=== PATIENT | male | born 1965 | race Asian ===

== ENCOUNTER 2018-09-14 04:00 | Emergency (ER) | payer OTHER ==
[2018-09-14] MEDS ORDERED: Morphine 4 MG/ML VIAL ONE (04:18)
[2018-09-14] MEDS ORDERED: Ondansetron PF 4 MG/2 ML Vial ONE (04:18)
[2018-09-14 04:27] LABS: #Lymphocytes 0.9 thou/uL (1.20-3.40); #Monocytes 0.6 thou/uL (0.11-0.59); #Neutrophils 11.7 thou/uL (1.40-6.50); %Eosinophils 0.2 % (0.0-10.0); %Lymphocytes 6.9 % (21.0-51.0); %Monocytes 4.6 % (0.0-10.0); %Neutrophils 88.3 % (42.0-75.0); Hemoglobin 15.2 g/dL (14.0-18.0); Mean Corpuscular HGB CONC 34.3 g/dL (32.0-36.0); Mean Corpuscular Hemoglobin 32.1 pg (27.0-31.0); Mean Corpuscular Volume 93.5 fL (78.0-98.0); Mean Platelet Volume 6.9 fL (7.4-10.4); Platelet Count 216 thou/uL (130-400); Red Blood Cell (RBC) Count 4.74 mill/uL (4.70-6.10); White Blood Cell (WBC) Count 13.2 thou/uL (4.8-10.8)
[2018-09-14 04:46] LABS: ALT (SGPT) 33 U/L (8-55); AST (SGOT) 22 U/L (5-34); Albumin 4.9 g/dL (3.5-5.0); Alkaline Phosphatase 87 U/L (40-150); Anion Gap 16 mmol/L (10-20); BUN (Urea Nitrogen) 20 mg/dL (8.4-25.7); Calc. Creatinine Clearance 0 mL/min (70-130); Calcium 9.6 mg/dL (7.8-10.44); Carbon Dioxide 23 mmol/L (22-29); Chloride 103 mmol/L (98-107); Estimated GFR-MDRD 70; Globulin 3.1 g/dL (2.4-3.5); Glucose 151 mg/dL (70-105); Lipase 42 U/L (8-78); Potassium 3.8 mmol/L (3.5-5.1); Sodium 138 mmol/L (136-145)
[2018-09-14 05:57] LABS: Bilirubin Negative (Negative); Blood, Urine Moderate (Negative); Glucose, Urine (Dipstick) Negative (Negative); Leukocyte Negative (Negative); Nitrite Negative (Negative); Protein, Urine (Dipstick) Negative (Neg-Trace); Urobilinogen 0.2 mg/dL (0.2-1.0)
[2018-09-14 06:15] LABS: Bacteria/HPF None Seen HPF (None Seen); Hyaline Casts/LPF 0-3 HYALINE CAST LPF (0-3 Hyaline); Squamous Epithelial None Seen HPF (0-3); WBC/HPF 0-3 HPF (0-3)
--- NOTE | 2018-09-14 06:18 | CT ---
CT ABDOMEN AND PELVIS WITH CONTRAST: INDICATIONS: Abdominal pain. COMPARISON: No prior comparison. FINDINGS: A 4-5 mm right UVJ calculus is present, resulting in moderate right, acute obstructive uropathy. The re is perinephric inflammation and fluid. A slight degree of diminished enhancement of the right kid lars is present. The solid abdominal organs are otherwise grossly unremarkable. The bowel is incompl etely evaluated without enteric contrast. Mild volume loss is seen at the lung bases. There is osse ous degenerative change. IMPRESSION: Moderate acute obstructive uropathy of the right urinary collection system, as the result of a 4-5 mm right UVJ calculus. POS: KYLEEK
[2018-09-14 06:20] LABS: Clarity Clear (Clear)
[2018-09-14] MEDS ORDERED: Ketorolac Tromethamine 30 MG/ML VIAL ONE (06:30)
[2018-09-14] MEDS ORDERED: ISOVUE-370 76%-LOCM 1 ML ONE (12:42)
== END 2018-09-14 06:58 | disposition home or self-care (01) ==
LOC: ERS 04:00
DX: N13.2 Hydronephrosis with renal and ureteral calculous obstruction (principal); I10 Essential (primary) hypertension; E78.5 Hyperlipidemia, unspecified
CPT/HCPCS: 74177; 80053; 81003; 81015; 83690; 85025; 96374; 96375; J1885; J2270; J2405; Q9966

== ENCOUNTER 2019-10-19 10:38 | Emergency (ER) | payer SELFPAY ==
[2019-10-19] MEDS ORDERED: Adacel (T-DAP) 0.5 ML SYRINGE ONE (10:51)
[2019-10-19] MEDS ORDERED: Lidocaine 1% w/Epinephrine 1:100K 20 ML VIAL ONE (10:51)
--- NOTE | 2019-10-19 11:10 | CT ---
CT HEAD WITHOUT IV CONTRAST COMPARISON: None HISTORY: Head injury. Laceration to right anterior head. TECHNIQUE: Axial CT imaging at 5 mm intervals from vertex through skull base without contrast FINDINGS: Linear hypodensities are seen in the right cerebellar hemisphere, but only seen on a single slice jake ection and likely artifactual. There is no evidence of an acute infarction, hemorrhage, mass effect, or midline shift. The ventricular system is normal in size, shape, and position. Visualized paranasal sinuses are clear. Osseous structures appear intact.Small soft tissue defect/laceration is seen in the right anterior sc alp soft tissues with adjacent mild scalp soft tissue swelling. IMPRESSION: 1. No acute intracranial abnormality demonstrated. 2. Left anterior frontal scalp soft tissue defect/laceration with minimal adjacent soft tissue swelli ng.
[2019-10-19] MEDS ORDERED: Bacitracin 1 PK ONE (11:39)
== END 2019-10-19 11:52 | disposition home or self-care (01) ==
LOC: ERS 10:38
DX: S01.01XA Laceration without foreign body of scalp, initial encounter (principal); S01.81XA Laceration without foreign body of other part of head, initial encounter; I10 Essential (primary) hypertension; E78.5 Hyperlipidemia, unspecified; W01.10XA Fall on same level from slipping, tripping and stumbling with subsequent striking against unspecified object, initial encounter
CPT/HCPCS: 12014; 70450; 90715

== ENCOUNTER 2019-10-28 16:09 | Emergency (ER) | payer SELFPAY ==
[2019-10-28] MEDS ORDERED: Bacitracin 1 PK ONE (17:14)
== END 2019-10-28 17:17 | disposition home or self-care (01) ==
LOC: ERS 16:09
DX: S01.01XD Laceration without foreign body of scalp, subsequent encounter (principal); I10 Essential (primary) hypertension; E78.5 Hyperlipidemia, unspecified; Z79.899 Other long term (current) drug therapy; X58.XXXD Exposure to other specified factors, subsequent encounter

== ENCOUNTER 2025-03-12 14:11 | Emergency (ER) | payer OTHER ==
[2025-03-12] MEDS ORDERED: Iopamidol-370 76% 500 ML MDV (1 ML CHARGE) ONE (15:27)
[2025-03-12] MEDS ORDERED: Ketorolac Tromethamine 30 MG (1 mL) VIAL ONE (15:49)
[2025-03-12] MEDS ORDERED: Dexamethasone 10 MG/ML VIAL ONE (15:49)
[2025-03-12 16:19] LABS: #Basophils 0.03 10x3/uL (0.0-0.2); #Eosinophils 0.21 10x3/uL (0.0-0.7); #Monocytes 0.51 10x3/uL (0.11-0.59); #Neutrophils 4.23 10x3/uL (1.40-6.50); %Basophils 0.5 % (0.0-1.0); %Eosinophils 3.3 % (0.0-10.0); %Lymphocytes 21.8 % (21.0-51.0); %Monocytes 8.0 % (0.0-10.0); %Neutrophils 66.1 % (42.0-75.0); Hematocrit 46.8 % (42.0-52.0); Hemoglobin 15.9 g/dL (14.0-18.0); Mean Corpuscular Hemoglobin 31.6 pg (27.0-31.0); Mean Corpuscular Volume 93.0 fL (78.0-98.0); Platelet Count 175 10x3/uL (130-400); Red Blood Cell (RBC) Count 5.03 mill/uL (4.70-6.10); White Blood Cell (WBC) Count 6.39 10x3/uL (4.8-10.8)
[2025-03-12 16:46] LABS: ALT (SGPT) 33 U/L (Less than 45); AST (SGOT) 30 U/L (11-34); Albumin 5.1 g/dL (3.1-4.5); Alkaline Phosphatase 91 U/L (40-110); Anion Gap 17 mmol/L (10-20); BUN (Urea Nitrogen) 25 mg/dL (8.4-25.7); Bilirubin, Total 1.7 mg/dL (0.3-1.2); Calc. Creatinine Clearance 0 mL/min (70-130); Calcium 9.6 mg/dL (7.8-10.44); Carbon Dioxide 28 mmol/L (22-29); Chloride 102 mmol/L (98-107); Globulin 3.0 g/dL (2.4-3.5); Glucose 110 mg/dL (70-105); Potassium 4.1 mmol/L (3.5-5.1); Sodium 143 mmol/L (136-145)
== END 2025-03-12 17:38 | disposition home or self-care (01) ==
LOC: ERS 14:11
DX: R59.0 Localized enlarged lymph nodes (principal); I10 Essential (primary) hypertension; E78.5 Hyperlipidemia, unspecified
CPT/HCPCS: 70491; 71045; 80053; 85025; 87081; 87426; 87430; 96374; 96375; J1100; J1885; Q9967